=== PATIENT | female | born 1975 | race Caucasian/White ===

== ENCOUNTER 2020-05-12 11:23 | Outpatient (CLI) | payer MEDICARE, SELFPAY ==
[2020-05-12 11:49] LABS: Basophils Absolute Auto 0.03 K/mm3 (0.00-0.10); Basophils Percent Auto 0.4 % (0.0-1.0); Eosinophils Absolute Auto 0.18 K/mm3 (0.02-0.50); Eosinophils Percent Auto 2.6 % (1.0-6.0); Hematocrit 36.2 % (35.0-49.0); Hemoglobin 11.1 g/dL (12.0-15.0); Immature Granulocyte Absolute 0.03 K/mm3 (0.00-0.00); Immature Granulocyte Percent A 0.4 % (0.0-0.0); Lymphocytes Absolute Auto 1.36 K/mm3 (1.10-4.50); Lymphocytes Percent Auto 19.6 % (18.0-42.0); Mean Corpuscular HGB Conc 30.7 g/dL (32.0-36.0); Mean Corpuscular Hemoglobin 27.7 pg (27.0-31.0); Mean Corpuscular Volume 90.3 fL (78.0-102.0); Mean Platelet Volume 10.9 fl (9.2-11.8); Monocytes Absolute Auto 0.43 K/mm3 (0.10-0.90); Monocytes Percent Auto 6.2 % (2.0-11.0); Neutrophils Absolute Auto 4.9 K/mm3 (1.7-7.2); Neutrophils Percent Auto 70.8 % (50.0-70.0); Platelet Count Result 282 K/mm3 (150-420); Red Blood Count 4.01 M/mm3 (4.20-5.40); Red Cell Distribution Width 15.2 % (11.6-14.4)
[2020-05-12 12:30] LABS: Alanine Aminotransferase 30 U/L (14-59); Albumin Level 3.4 g/dL (3.4-5.0); Alkaline Phosphatase 74 U/L (46-116); Anion Gap 8 mmol/L (8-16); Aspartate Amino Transferase 25 U/L (15-37); Bilirubin,Total 0.3 mg/dL (0.00-1.00); Blood Urea Nitrogen 9 mg/dL (7-18); Calcium 8.7 mg/dL (8.5-10.1); Carbon Dioxide 29 mmol/L (21-32); Chloride 102 mmol/L (98-108); Estimated Glomerular Filt Rate > 60; Glucose 124 mg/dL (70-99); Osmolality Calculated 287 mOsm/kg (285-295); Potassium 4.1 mmol/L (3.5-5.1); Sodium 139 mmol/L (136-145); Total Protein 6.8 g/dL (6.4-8.2)
[2020-05-12 12:47] LABS: Pregnancy On Board Control Positive; Urine Pregnancy Test Negative
== END 2020-05-12 11:24 | disposition home or self-care (01) ==
PROVIDERS: PCP Family Medicine
DX: G35 Multiple sclerosis (principal); Z79.899 Other long term (current) drug therapy; Z29.8 Encounter for other specified prophylactic measures
CPT/HCPCS: 36415; 80053; 81025; 85025

== ENCOUNTER 2020-11-11 08:01 | Outpatient (CLI) | payer MEDICARE, SELFPAY ==
--- NOTE | ~2020-11-11 | MM_ITS ---
EXAMINATION: MM screening juanis BI w nataliia HISTORY: Screening TECHNIQUE: Craniocaudal and mediolateral oblique 3-D tomosynthesis images were obtained and synthetic 2-D images were generated. CAD analysis was submitted and interpreted. COMPARISON: No prior mammogram is available for comparison at this institution. BREAST PARENCHYMAL COMPOSITION: The breasts are heterogenously dense, which may obscure small masses. FINDINGS: There are multiple masses scattered throughout both breasts. There are no suspicious calcif ications. There is a tissue marker from previous benign left breast biopsy. IMPRESSION: 1. Multiple bilateral breast masses. 2. Additional mammographic views and possible breast ultrasound are recommended. BI-RADS Category 0: Incomplete: Needs additional imaging evaluation. Reviewed, dictated and finalized at location A. [employer] IMPRESSION: 1. Multiple bilateral breast masses. 2. Additional mammographic views and possible breast ultrasound are recommended . BI-RADS Category 0: Incomplete: Needs additional imaging evaluation.
== END 2020-11-11 08:02 | disposition home or self-care (01) ==
LOC: CHSIMG 08:05
PROVIDERS: PCP Family Medicine; Visit Provider Family Medicine
DX: Z12.31 Encounter for screening mammogram for malignant neoplasm of breast (principal)
CPT/HCPCS: 77063; 77067

== ENCOUNTER 2020-12-22 18:53 | Emergency (ER) | payer MEDICARE, MEDICAID, SELFPAY ==
[2020-12-22 18:55] VITALS: BP 110/70; PULSE 93; RESP 20; TEMP 37.3; O2SAT 98
--- NOTE | 2020-12-22 19:18 | ED.DENTAL ---
HPI - Dental/Oral General Stated complaint: tooth pain Time Seen by Provider: 12/22/20 18:57 Source: patient Mode of arrival: ambulatory Limitations: no limitations History of Present Illness HPI Narrative: this is a 45-year-old female with chronic tooth decay with a recent dental pain has an appointment with a dentist but currently having some surrounding gum inflammation the her right upper molar area with severe due for tooth decay with a swollen tender submandibular gland with no fever chills no shortness of breath. MD Complaint: tooth pain Teeth map: 1. severe tooth decay with surrounding gum inflammation Onset (ago): day(s) Duration: constant Severity: moderate Severity scale (1-10): 6 Relieving factors: nothing Exacerbating factors: chewing and cold Context: history of dental caries Associated symptoms: gum swelling Review of Systems Review of Systems: All systems reviewed & are unremarkable except as noted in HPI and below PMFSH Past Medical History Medical History Anxiety Exam Const: General: no acute distress Orientation/consciousness: patient oriented x3 HENMT: Head: normal to inspection Other: right upper molar tooth decay with surrounding gum inflammation and tenderness with palpation Eyes: Conjunctivae: conjunctivae normal Pupils: Equal, round and reactive pupils present Chest: Chest palpation & inspection: normal inspection of the chest Resp: Effort & Inspection: normal respiratory effort Cardio: Rate: regular rate Rhythm: regular rhythm GI: GI Palp: Yes Soft to palpation : General: Yes no CVA tenderness Skin: General skin exam: normal color Rashes: no rashes Neuro: General: patient oriented x3 Extrem: General: normal to inspection Course Course Emergency Course: patient received ceftriaxone I can along with Toradol IM for pain Critical Care Time Critical Care Time Critical Care Time: No Discharge Plan Discharge Clinical Impression: Abscess, dental Patient Disposition: Home, Self-Care Condition: Stable Instructions: Antibiotic Form, Dental Abscess (ED) Additional Instructions: take medicine prescribed and follow-up with dentist as soon as possible for further evaluation and treatment. Prescriptions: New sulfamethoxazole-trimethoprim [Bactrim DS] 800-160 mg tablet 1 tablet PO Q12H Qty: 20 RF: 0 tramadol [Ultram] 50 mg tablet 50 mg PO Q6H PRN (Reason: pain) Qty: 20 RF: 0 Follow-up/Referrals: Shashank Hicks M.D. [Primary Care Provider] - Time of Disposition: 19:27
[2020-12-22] MEDS: cefTRIAXone 1 GM VIAL IM (19:52)
[2020-12-22] MEDS: KETOROLAC (*BKC) 60 MG/2 ML VIAL IM (19:52)
== END 2020-12-22 20:10 | disposition home or self-care (01) ==
PROVIDERS: Emergency Provider Emergency Medicine; PCP Family Medicine
DX: K04.7 Periapical abscess without sinus (principal)
CPT/HCPCS: 96372; 99283; 99284; J0696; J1885

== ENCOUNTER 2020-12-23 09:56 | Outpatient (CLI) | payer MEDICARE, MEDICAID, SELFPAY ==
--- NOTE | ~2020-12-23 | MMUS_ITS ---
EXAMINATION: MM diagnostic juanis BI w nataliia, US breast BI limited HISTORY: Bilateral breast masses on screening mammogram TECHNIQUE: Additional 3-D tomosynthesis images of the breasts were performed and synthetic 2-D images were generated. CAD analysis was submitted and interpreted. High resolution limited bilateral breast ultrasound was performed. COMPARISON: 11/11/2020, 04/07/2019 BREAST PARENCHYMAL COMPOSITION: The breasts are heterogeneously dense, which may obscure small masses . FINDINGS: MAMMOGRAPHIC FINDINGS: Left breast: There is an approximately 2 cm oval, obscured, equal density mass in the posterior third of the outer breast at the 1:00 location 8 cm from the nipple. A stable mass with biopsy change is s een in the inner left breast. Right breast: There are multiple obscured low density masses in the upper outer quadrant of the breas t. The largest identified measures 1 cm in the middle third of the breast at the 10:00 location 6 cm from the nipple. ULTRASOUND: There are multiple similar appearing rounded oval, cystic and hypoechoic masses in the breasts. A 2 c m cluster of microcysts corresponds to the largest mammographic finding in the left breast. A [address] corresponds to the largest mammographic finding in the right breast. IMPRESSION: 1. Multiple similar appearing bilateral breast masses, consistent with benign findings. 2. Recommend routine screening mammography in one year. BI-RADS Category 2: Benign finding(s). Reviewed, dictated and finalized at location A. IMPRESSION: 1. Multiple similar appearing bilateral breast masses, consistent with benign f indings. 2. Recommend routine screening mammography in one year. BI-RADS Category 2: Benign finding(s).
== END 2020-12-23 09:57 | disposition home or self-care (01) ==
LOC: CHSIMG 09:58
PROVIDERS: PCP Family Medicine; Visit Provider Family Medicine
DX: R92.8 Other abnormal and inconclusive findings on diagnostic imaging of breast (principal)
CPT/HCPCS: 76642; 77062; 77066; G0279

== ENCOUNTER 2021-07-21 17:39 | Outpatient (CLI) | payer MEDICARE, MEDICAID, SELFPAY ==
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
== END 2021-07-21 17:40 | disposition home or self-care (01) ==
LOC: CHSIMG 17:41
PROVIDERS: PCP Family Medicine
DX: G35 Multiple sclerosis (principal); S09.90XS Unspecified injury of head, sequela
CPT/HCPCS: 70450

== ENCOUNTER 2022-05-18 09:30 | Emergency (ER) | payer MEDICARE, MEDICAID, SELFPAY ==
--- NOTE | ~2022-05-18 | XR_ITS ---
EXAMINATION: XR elbow RT min 3V DATE: 05/18/2022 09:56 INDICATION: Right elbow pain TECHNIQUE: Anteroposterior, two oblique and lateral views of the right elbow were obtained. COMPARISON: None. FINDINGS: Alignment is normal. No fracture or joint effusion. Joint spaces are normal. Soft tissues are unremarkable. IMPRESSION: 1. No acute osseous abnormality. Reviewed, dictated and finalized at location B.
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
[2022-05-18 09:45] VITALS: BP 119/79; PULSE 92; RESP 16; TEMP 36.8; O2SAT 97
[2022-05-18 10:27] VITALS: BP 119/79; PULSE 92; RESP 16; TEMP 36.8; O2SAT 97
== END 2022-05-18 10:30 | disposition home or self-care (01) ==
PROVIDERS: Emergency Provider Emergency Medicine; PCP Family Medicine
DX: S40.021A Contusion of right upper arm, initial encounter (principal); W22.8XXA Striking against or struck by other objects, initial encounter
CPT/HCPCS: 73080; 99283

== ENCOUNTER 2023-04-09 23:24 | Emergency (ER) | payer MEDICARE, SELFPAY ==
[2023-04-09 23:25] VITALS: BP 124/78; PULSE 107; RESP 18; TEMP 36.8; O2SAT 97
--- NOTE | 2023-04-09 23:30 | ED.DENTAL ---
HPI - Dental/Oral General Chief complaint: Dental/Oral Stated complaint: Tooth Abscess Time Seen by Provider: 04/09/23 23:29 Source: patient and RN notes reviewed Mode of arrival: ambulatory Limitations: no limitations History of Present Illness Complaint: tooth pain Location: Tooth # (23) Onset (ago): day(s) (1) Duration: constant Severity: moderate Relieving factors: NSAIDs Exacerbating factors: chewing Context: history of dental caries Associated symptoms: gum swelling Treatment prior to arrival: oral analgesic Related Data Home Medications Medication Instructions Recorded Confirmed cyclobenzaprine 10 mg tablet 10 mg PO TID 05/18/22 05/18/22 dalfampridine 10 mg 10 mg PO DAILY 05/18/22 05/18/22 tablet,extended release,12 hr duloxetine 30 mg capsule,delayed 30 mg PO DAILY 05/18/22 05/18/22 release gabapentin 600 mg tablet 600 mg PO DAILY 05/18/22 05/18/22 tizanidine 4 mg tablet 4 mg PO DAILY 05/18/22 05/18/22 Allergies Allergy/AdvReac Type Severity Reaction Status Date / Time amoxicillin [From Amoxil] Allergy Rash Verified 05/18/22 09:52 winslow pepper [green pepper] Allergy Itching Verified 05/18/22 09:52 black pepper Allergy Rash Verified 05/18/22 09:52 coconut Allergy Itching Verified 05/18/22 09:52 erythromycin base Allergy Rash Verified 05/18/22 09:52 Penicillins Allergy Rash Verified 05/18/22 09:52 Review of Systems Review of Systems: All systems reviewed & are unremarkable except as noted in HPI and below PMFSH Past Medical History Medical History Anxiety Multiple sclerosis Surgical History Surgical History (Updated 04/09/23 @ 23:36 by Sean Harmon MD) History of appendectomy Social History Social History (Updated 04/09/23 @ 23:36 by Sean Harmon MD) Substance use type: marijuana Exam Const: General: healthy appearing, no acute distress and alert Nutritional Appearance: well nourished Orientation/consciousness: patient oriented x3 Limitations: no limitations Other: female tech in room during examination. HENMT: Head: normal to inspection Ears: external ears normal Face/Nose/Sinus: Normal external nose present and fluctuance ( Left medial mandible) Mouth: Yes moist mucous membranes Teeth and gingiva: caries, gingiva abnormal edematous and tender and poor dentition Teeth image: 1. swelling along the gum line tenderness no evidence of any organized Pustule that would require draining Eyes: Conjunctivae: conjunctivae normal Pupils: Equal, round and reactive pupils present EOM: EOMs intact bilaterally Neck: Neck: normal visual inspection and no lymphadenopathy Resp: Effort & Inspection: normal respiratory effort Auscultation: clear to auscultation bilaterally Cardio: Rate: regular rate Rhythm: regular rhythm GI: GI Palp: Yes Soft to palpation and No Tenderness to palpation present (GI) Auscultation: normal bowel sounds Back/Spine/Pelvis: Cervical Spine: cervical ROM normal Thoracic/Lumbar Spine: thoraco-lumbar ROM normal Skin: General skin exam: normal color Rashes: no rashes Neuro: General: patient oriented x3, moves all extremities, no focal motor deficits and CN's II-XI intact bilaterally Speech: normal speech Gait exam (Neuro): Normal gait present Extrem: General: normal to inspection and no clubbing, cyanosis or edema Psych: Mental Status: mental status grossly normal Affect: normal affect Attitude: cooperative Course Vital Signs Vital signs: Vital Signs Temperature 36.8 C 04/09/23 23:25 Pulse Rate 107 H 04/09/23 23:25 Respiratory Rate 18 04/09/23 23:25 Blood Pressure 124/78 04/09/23 23:25 Pulse Oximetry 97 04/09/23 23:25 Oxygen Delivery Room Air 04/09/23 23:25 Temperature 36.6 C 04/09/23 23:56 Pulse Rate 80 04/09/23 23:56 Respiratory Rate 20 04/09/23 23:56 Blood Pressure 120/88 04/09/23 23:56 Pulse Oximetry 99 04/09/23 23:5
[2023-04-09] MEDS: CLINDAMYCIN HCL 150 MG CAP 300 MG PO (23:43)
[2023-04-09 23:56] VITALS: BP 120/88; PULSE 80; RESP 20; TEMP 36.6; O2SAT 99
== END 2023-04-09 23:57 | disposition home or self-care (01) ==
LOC: CHSED 23:42
PROVIDERS: Emergency Provider Emergency Medicine; PCP Family Medicine
DX: K04.7 Periapical abscess without sinus (principal); K02.9 Dental caries, unspecified
CPT/HCPCS: 99283; A9270

== ENCOUNTER 2024-12-17 01:07 | Emergency (ER) | payer MEDICARE, MEDICAID, SELFPAY ==
--- OUTSIDE RECORDS SUMMARY | 2024-12-17 01:10 | XMS_ITS | Data Portability ---
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 10/07/2024 1 [employer] (MEDICARE REPLACEMENT PPO) [id number] Elza Partida Kimi [id number] Elza Partida Kimi 10/07/2024 2 [place] MEDICARE REPLACEMENT PRIMARY) Elza Tomlin [id number] Elza Partida Kimi 10/08/2024 1 [employer] (MEDICARE REPLACEMENT PPO) [id number] L Elza Partida Tippah [id number] Elza Partida [place] 10/08/2024 2 [place]PLACEMENT [place]) Elza Tomlin [id number] Elza Partida [place] 10/15/2024 1 [employer] (MEDICARE REPLACEMENT PPO) [id number] L Elza Partida [place] [id number] Elza Partida Kimi 10/15/2024 2 [place]IC[place]PLACEMENT [place]) Elza Tomlin [id number] Elza Partida [place] 11/12/2024 1 [employer] (MEDICARE REPLACEMENT PPO) [id number] L Elza Partida Kimi [id number] Elza Partida Kimi 11/12/2024 2 [place]ICARE REPLACEMENT PRIMARY) Elza Tomlin [id number] Elza Partida [place] 12/11/2024 1 [employer] (MEDICARE REPLACEMENT PPO) [id number] Elza Partida [place] [id number] Elza Partida [place] 12/11/2024 2 [place] MEDICARE REPLACEMENT PRIMARY) Elza Tomlin [id number] Elza Partida [place]ippah Notes Date Note Type Note Provider Name and Address Organization Details Recorded Time 10/07/2024 text/html Elza Fisher is a 49-year-old woman, I am seeing for follow-up regarding MS, and assessment of immunotherapy. P revious clinic notes 07/21/24Elza has had episodes of intermittent dizziness for about 10 years now. However in 2020, she had her first episode of dizziness, she describes a spinning sensation. In addition to dizziness, she did also develop imbalance, and difficulty walking. She noticed over the last 10 years that heat can trigger dizziness and imbalance. Over the last few years, she also noticed walking and balance have gotten progressively worse. 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 Bowel and bladder function are intact. She complains of short-term memory loss, word finding difficulties, and difficulty multitasking. S he saw Dr. Barahona in 2011 diagnosed her with multiple sclerosis based on her clinical course, and MRI findings.. I personally reviewed MRI from 2011 and this showed multiple patchy, and confluent foci of increased FLAIR signal in the periventricular, deep, subcortical white matter. Many of these involve the corpus callosum, and radiate in a perpendicular fashion away from the ventricular system with a characteristic Bates's finger. There are no pathologic contrast enhancement to suggest active disease. Overall these findings are compatible with her stated diagnosis of multiple sclerosis. R egarding MS disease modifying therapy, she tried very Rebif in 2011 and she took it for 2 months. She stopped previous because of intolerable side effects including fatigue and flulike illness. In 2012, she tried Tecfidera however she developed severe gastrointestinal symptoms in addition to facial flushing and scalp itching. She has been off of disease modifying therapy since 2013. Overall she feels that her disease of gotten worse. She also complains of progressive decline in cognitive function. I nterval history 07/01/2019 I n the interval since her last visit, she has had no relapses, no neurological symptoms, or disease progression. Baseline MELL index negative at 0.1. She wants to try Tysabri infusion. I nterval history 09/30/2019 s he started Tysabri infusion in July 2019 T olerates the medication well without major side effects. In the interval since her last visit, she has had no relapses, no neurological symptoms, or disease progression. I nterval history 09/07/2022 Ana kevin presents for follow-up today regarding MS, and assessment of immunotherapy. She tolerates Tysabri well without major side effects. In the interval since her last visit, she has had no relapses, no neurological symptoms, disease progression. Her MELL index remains negative at 0.1. I nterval history 06/18/2023 Ana kevin presents for follow-up today regarding MS, assessment of immunotherapy. She tolerates Tysabri well without major side effects. Her last infusion was 05/23/2023 at the [facility] first floor. In the interval since her last visit, she has had no relapses, no new neurological symptoms, or disease progression.MELL index performed in February 2023 is negative at 0.1. I nterval history 09/11/2023Elza presents for follow-up today regarding MS, and assessment of immunotherapy. She received her Tysabri infusion today, tolerates the medication well without major side effects. Her last JCV index performed in February 2023 was negative at 0.1. In the interval since her last visit, she has had no relapses, no neurological symptoms, or disease progression. I nterval history 12/24/23Elza presents for follow-up regarding MS, and assessment of immunotherapy. She began Tysabri infusion q 4 weeks, in July 2019. She tolerates Tysabri well without major side effects.Next tysabri Infusion is on 01/01/2024JC index in March 2023 is negative at 0.1. In the interval since her last visit, she has had no relapses, no neurological symptoms, or disease progression.Due for follow-up brain and cervical MRI. I nterval History 07/21/24Elza presents for follow-up regarding MS, and assessment of immunotherapy. She began Tysabri July 2019, gets it q 4 weeks. Last MELL index 03/05/24 remains negative at 0.13. In the interval since her last visit, she has had no relapses, no neurological symptoms, or disease progression.Interval History 10/07/24Elza presents for follow-up regarding MS, and assessment of immunotherapy. She began Tysabri July 2019, gets it q 4 weeks. Last MELL index 09/10/24 remains negative at 0.13.Pain in her low, and mid back have been going on for 2 weeksShe denies other urinary symptomsShe will be having her tysabri infusion tomorrow. Jesus Chavarria MD [address] [place], [address], [place] [facility] 10/08/2024 07:01:45 OBGyn Episode No OBEpisode recorded.
--- OUTSIDE RECORDS SUMMARY | 2024-12-17 01:10 | XMS_ITS | Encounter Summary ---
Author Organization [facility] Address [address] [place] [address] Care Team Providers Care Accounts Payable Technician Name Role Phone Shashank Hicks MD Primary Care Provider [phone] Reason for Visit * Reason Onset Date Comments Medication 04/16/2022 Encounter Details Date Type Department Care Team (Late st Contact Info) Description 04/16/2022 Telephone [facility] [address] [place] [address] Jesus Chavarria MD [address] [address] Medication Social History Tobacco Use Types Packs/Day Years Used Date Smoking Tobacco: Former Smokeless Tobacco: Never Comments:N/A Alcohol Use Standard Drinks/Week Comments Yes 1 (1 standard drink = 0.6 oz pur e alcohol) rarely AUDIT-C Answer Date Recorded Frequency of Alcohol Consumption Never 05/06/2019 Average Number of Drinks Not on file 019 Frequency of Binge Drinking Not on file 04/23 PHQ-2 Answer Date Recorded PHQ-2 Score - If the patient scores above 3, please move on to questions 3-9 0 04/16/2022 Comments No Sex and Gender Information Value Date Recorded Sex Assigned at Female 10/07/2024 12:36 PM TRAIN CONTROLLER Legal Sex Female 6:00 PM TRAIN CONTROLLER Gender Identity Female 10/04/2021 8:54 AM TRAIN CONTROLLER Sexual Orientation Straight 10/04/2021 8: 54 AM TRAIN CONTROLLER COVID-19 Exposure Response Date Recorded In the last 10 days, have yo u been in contact with someone who was confirmed or suspected to have Coronavirus/COVID-19? No / Unsure 04/16/2022 9:57 AM CDT documented as of this encounter Progress Notes * Gladis Pimentel - 04/18/2022 10:21 AM CDT Attempted to call number but it was no longer in service. * Pool Webster MA - 04/16/2022 11:20 AM CDT Per Drug Rep Navin is calling to see if Elza is still on the Tysabri. They had in their notes that she had recently been in the ER. Please call her back at [phone]. documented in this encounter Plan of Treatment Not on file documented as of this encounter Visit Diagnoses Not on filedocumented in this encounter Additional Health Concerns Assessment Noted Time PHQ-9 Depression Total Score: 2 10/16/19 22 12:02 PM TRAIN CONTROLLER documented as of this encounter Care Teams Accounts Payable Technician Relationship Specialty Start Date End Date Shashank Hicks MD [address] [place] [address] PCP - General FAMILY PRACTICE 04/03/19 documented as of this encounter
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
[2024-12-17 01:11] VITALS: BP 113/65; PULSE 115; RESP 18; TEMP 36.1; O2SAT 97
--- NOTE | 2024-12-17 01:16 | ED_ITS ---
HPI - Dental/Oral General Chief complaint: Dental/Oral Stated complaint: dental Time Seen by Provider: 12/17/24 01:16 Source: patient Mode of arrival: ambulatory Limitations: no limitations History of Present Illness HPI Narrative: 49-year-old female with a history of anxiety, multiple sclerosis, Asthma presents to the ED with -- right lower jaw dental pain. She has extensive dental caries. no fever or chills Complaint: tooth pain Location: Tooth # ( 27, 28 which is fractured and carious) Onset (ago): day(s) ( 1 day) Duration: constant Severity: moderate Relieving factors: nothing Exacerbating factors: cold and heat Context: history of dental caries Treatment prior to arrival: none Related Data Home Medications ?Medication ?Instructions ?Recorded ?Confirmed ?Last Taken ?Type cyclobenzaprine 10 mg tablet 10 mg PO TID 05/18/22 05/18/22 Unknown History dalfampridine 10 mg 10 mg PO DAILY 05/18/22 05/18/22 Unknown History tablet,extended release,12 hr duloxetine 30 mg capsule,delayed 30 mg PO DAILY 05/18/22 05/18/22 Unknown History release gabapentin 600 mg tablet 600 mg PO DAILY 05/18/22 05/18/22 Unknown History tizanidine 4 mg tablet 4 mg PO DAILY 05/18/22 05/18/22 Unknown History Allergies Allergy/AdvReac Type Severity Reaction Status Date / Time amoxicillin (From Amoxil) Allergy Rash Verified 12/17/24 01:16 winslow pepper (green pepper) Allergy Itching Verified 12/17/24 01:16 black pepper Allergy Rash Verified 12/17/24 01:16 coconut Allergy Itching Verified 12/17/24 01:16 erythromycin base Allergy Rash Verified 12/17/24 01:16 Penicillins Allergy Rash Verified 12/17/24 01:16 Review of Systems Review of Systems: All systems reviewed & are unremarkable except as noted in HPI and below PMFSH Past Medical History Medical History (Updated 12/17/24 @ 01:25 by Paolo Stovall MD) Asthma Multiple sclerosis Anxiety Surgical History Surgical History (Updated 04/09/23 @ 23:36 by Sean HarmonMD) History of appendectomy Social History Social History (Updated 04/09/23 @ 23:36 by Sean HarmonMD) Substance use type: marijuana Exam Narrative: pulse is 115. Blood pressure stable. Afebrile Const: General: no acute distress Orientation/consciousness: patient oriented x3 Limitations: no limitations HENMT: Head: normal to inspection Ears: external ears normal Face/Nose/Sinus: Normal external nose present Face and sinus: normal facial exam Mouth: Yes Normal oral and palatal mucosa present Teeth and gingiva: abnormal tooth and associated gingiva ( extensive dental caries. multiple missing teeth. multiple missing Crowns) Throat: posterior oropharynx normal Eyes: Conjunctivae: conjunctivae normal Pupils: Equal, round and reactive pupils present EOM: EOMs intact bilaterally Direct Ophthalmoscopy: no photophobia Neck: Neck: normal visual inspection, no lymphadenopathy and no meningeal signs Chest: Chest palpation & inspection: normal inspection of the chest Resp: Effort & Inspection: normal respiratory effort Auscultation: clear to auscultation bilaterally Cardio: Rate: regular rate Rhythm: regular rhythm GI: Auscultation: normal bowel sounds Other: no tenderness/rigidity/rebound. : General: Yes no CVA tenderness Back/Spine/Pelvis: Back: no CVA tenderness Skin: General skin exam: normal color Rashes: no rashes Wounds: no wounds Neuro: General: patient oriented x3, moves all extremities, no meningeal signs, no focal motor deficits and CN's II-XI intact bilaterally Cranial nerves: Yes Nystagmus not present Speech: normal speech Extrem: General: normal to inspection and no clubbing, cyanosis or edema Psych: Mental Status: mental status grossly normal Affect: normal affect Attitude: cooperative Course Course Emergency Course: Dental caries/ dental pain Vital Signs Vital signs: Vital Signs Temperature 36.1 C L 12/17/24 01:11 Pulse Rate 115 H 12/17/24 01:11 Respiratory Rate 18 12/17/24 01:11 Blood Pressure 113/65 12/17/24 01:11 Pulse Oximetry 97 12/17/24 01:11 Oxygen Delivery Room Air 12/17/24 01:11 Temperature 36.1 C L 12/17/24 01:11 Pulse Rate 115 H 12/17/24 01:11 Respiratory Rate 18 12/17/24 01:11 Blood Pressure 113/65 12/17/24 01:11 Pulse Oximetry 97 12/17/24 01:11 Oxygen Delivery Room Air 12/17/24 01:11 MDM - Dental/Oral MDM Narrative Medical decision making narrative: dental caries/ dental pain Differential Diagnosis Differential diagnosis: Likely gingival abscess Discharge Plan Discharge Clinical Impression: Toothache, Dental caries Patient Disposition: Home, Self-Care Condition: Stable Instructions: Antibiotic Form, Dental Abscess (ED), Toothache (ED) Patient Language: German Prescriptions: New clindamycin HCl 300 mg capsule 300 mg PO Q8H Qty: 30 0RF No Action cyclobenzaprine 10 mg tablet 10 mg PO TID gabapentin 600 mg tablet 600 mg PO DAILY tizanidine 4 mg tablet 4 mg PO DAILY duloxetine 30 mg capsule,delayed release(DR/EC) 30 mg PO DAILY dalfampridine 10 mg tablet extended release 12 hr 10 mg PO DAILY clindamycin HCl 300 mg capsule 300 mg PO Q8H 10 Days Qty: 30 0RF Follow-up/Referrals: Shashank Hicks M.D. [Primary Care Provider] - Stand Alone Forms: Work/School Release IP Time of Disposition: 01:25
--- NOTE | 2024-12-17 01:17 | PC.NURSE ---
DR CALI AT THE BEDSIDE
[2024-12-17] MEDS: HYDROcodone/acetaminophen (*CRX) 5-325 MG TABLET 1 TAB PO (01:32)
[2024-12-17] MEDS: CLINDAMYCIN HCL 150 MG CAP 300 MG PO (01:32)
== END 2024-12-17 01:47 | disposition home or self-care (01) ==
PROVIDERS: Emergency Provider Internal Medicine Critical Care Medicine; PCP Family Medicine
DX: K02.9 Dental caries, unspecified (principal)
CPT/HCPCS: 99283; A9270